=== PATIENT | female | born 1970 | race Caucasian/White ===

== ENCOUNTER 2018-03-15 14:22 | Emergency (ER) | payer MEDICAID ==
[~2018-03-15] VITALS: Ht 154.9 cm; Wt 95.5 kg
[2018-03-15] MEDS ORDERED: IBUPROFEN 600 MG TABLET PO ONE (16:45)
[2018-03-15] MEDS ORDERED: METHOCARBAMOL 500 MG TABLET PO ONE (16:45)
[2018-03-15] MEDS ORDERED: LIDOCAINE HCL 5% TRANSDERMAL PATCH TD ONE (16:45)
[2018-03-15 18:26] VITALS: BP 128/68
== END 2018-03-15 18:40 | disposition home or self-care (01) ==
LOC: EMS 14:23
DX: M54.6 Pain in thoracic spine (principal); M54.5 Low back pain; I10 Essential (primary) hypertension; W01.198A Fall on same level from slipping, tripping and stumbling with subsequent striking against other object, initial encounter; Y93.89 Activity, other specified; Y92.89 Other specified places as the place of occurrence of the external cause; Y99.8 Other external cause status
CPT/HCPCS: 71046; 72100; 99284

== ENCOUNTER 2018-10-18 21:48 | Emergency (ER) | payer SELFPAY ==
[~2018-10-18] VITALS: Ht 154.9 cm; Wt 100.0 kg
[2018-10-19 00:41] VITALS: BP 131/72
== END 2018-10-19 01:16 | disposition home or self-care (01) ==
LOC: EMS 21:49
DX: M24.411 Recurrent dislocation, right shoulder (principal)
CPT/HCPCS: 23650